=== PATIENT | female | born 1970 | race African-American/Black ===

== ENCOUNTER 2017-07-01 06:01 | Inpatient (IN) | payer OTHER ==
[~2017-07-01] VITALS: Ht 170.2 cm; Wt 119.7 kg
[2017-07-01] VITALS (8 sets, daily range): BP systolic 170–217; BP diastolic 78–101
--- NOTE | ~2017-07-01 | EKG ---
[address] [place] [address] ELECTROCARDIOGRAM REPORT Name: XANDER ZAVALA Room #: 170-7 ADM IN .R.#: [id number] Admission: 07/01/17 Attend Phys: Bryan Zhao MD Discharge: Date of : 74 Report #: [id number] THIS REPORT FOR: //name// [facility] ED Test Date: 2017-07-01 Test Time: 06:53:24 Pat Name: XANDER ZAVALA Department: Room: 170 Gender: F Manufacturing Tech: : 1970 Requested By: Chad Hoskins Order Number: [id number] MD: Maynor Sylvester Measurements Intervals [place] Rate: 91 P: 68 [place]: 229 QRS: -5 QRSD: 87 T: 120 QT: 404 QTc: 498 Interpretive Statements Sinus rhythm Prolonged [place] interval LVH with secondary repolarization abnormality Borderline prolonged QT interval No previous ECG available for comparison Electronically Signed On 07-01-2017 9:58:01 X [employer] by Maynor Sylvester [email or web address] <ELECTRONICALLY SIGNED> By: Maynor Sylvester MD, [facility] 07/01/17 [id number] Maynor Sylvester MD, FACC /EPI
[~2017-07-01 06:01] MED LIST: AMOXICILLIN 50500 M1 PO; HYDROCHLOROTH12.5 MG; IBUPROFEN 600600 M1 PO; NORCO 5-325 TA1 EACH PO
[2017-07-01] MEDS ORDERED: PRINIVIL20 MG PO (06:13)
[2017-07-01 06:47] LABS: ABSOLUTE NEUTROPHILS 11.1 thou/uL (1.4-8.2); BASOPHILS 0.6 % (0.0-2.0); EOSINOPHILS 0.1 % (0.0-3.0); HEMATOCRIT 37.7 % (37.0-47.0); HEMOGLOBIN 12.1 gm/dL (12.0-15.0); LYMPHOCYTES 11.6 % (24.0-44.0); MCH 26.7 pg (26.0-34.0); MCV 83.3 fL (80.0-100.0); MONOCYTES 2.9 % (1.0-8.0); PLATELET COUNT 272 thou/uL (150-400); POLYS 84.8 % (36.0-66.0); RBC 4.52 mil/uL (4.20-5.00); RDW 14.1 % (10.5-14.5); WBC 13.1 thou/uL (4.0-11.0)
[2017-07-01 07:03] LABS: MANUAL DIFF NO
[2017-07-01 07:05] LABS: APTT 26.2 Seconds (24.5-32.8); PROTIME 10.3 Seconds (9.3-11.4)
[2017-07-01 07:17] LABS: ANION GAP 14 mmol/L (7-16); BUN 11 mg/dL (7-18); CALCIUM 9.3 mg/dL (8.5-10.1); CHLORIDE 98 mmol/L (98-107); CO2 25 mmol/L (21-32); CREATININE 0.9 mg/dL (0.6-1.0); GLUCOSE 325 mg/dL (74-106); POTASSIUM 3.3 mmol/L (3.5-5.1); SODIUM 137 mmol/L (136-145)
[2017-07-01 07:27] LABS: ALBUMIN 3.6 g/dL (3.4-5.0); ALKALINE PHOSPHATASE 76 U/L (46-116); MAGNESIUM 1.4 mg/dL (1.8-2.4); SGOT 17 U/L (15-37); SGPT 17 U/L (30-65); TOTAL BILIRUBIN 0.3 mg/dL (<0.1-1.0); TOTAL PROTEIN 8.5 g/dL (6.4-8.2); TROPONIN-I < 0.04 ng/mL (<0.06)
[2017-07-01 08:19] LABS: URINE BILIRUBIN NEGATIVE (Negative); URINE BLOOD NEGATIVE (Negative); URINE COLOR YELLOW; URINE GLUCOSE-RANDOM* 3+ (Negative); URINE KETONES 2+ (Negative); URINE NITRITE NEGATIVE (Negative); URINE PROTEIN (DIPSTICK) NEGATIVE (Negative); URINE SPECIFIC GRAVITY 1.015 (1.003-1.035); URINE UROBILINOGEN 0.2 E.U./dl (0.2-1.0)
[2017-07-01 08:25] LABS: AMP/METHAMP Negative (Negative); BARBITURATES Negative (Negative); BENZODIAZEPINES Negative (Negative); COCAINE Negative (Negative); METHADONE Negative (Negative); OPIATES Negative (Negative); PCP Negative (Negative); THC Negative (Negative)
[2017-07-02 01:10] LABS: GLYCOHEMOGLOBIN (HGB A1C) 8.9 % (4.8-5.6)
[2017-07-02 05:51] VITALS: BP 179/85
[2017-07-02 06:22] LABS: CHOLESTEROL 235 mg/dL (<200); HDL CHOLESTEROL 61 mg/dL (>40); LDL CHOLESTEROL 159 mg/dL (<100); SERUM ASSESSMENT Clear; TC:HDL 3.9 Ratio (Not establshd); TRIGLYCERIDE 79 mg/dL (<150); VLDL 16 mg/dL (<40)
[2017-07-02 07:42] VITALS: BP 194/88
[2017-07-02 12:59] VITALS: BP 144/84
[2017-07-02 16:29] VITALS: BP 180/105
[2017-07-02 18:15] VITALS: BP 147/85
[2017-07-02 20:00] VITALS: BP 153/79
[2017-07-03] VITALS: BP 165/79
[2017-07-03 04:15] VITALS: BP 156/72
[2017-07-03 08:12] VITALS: BP 154/76
[2017-07-03] MEDS ORDERED: LIPITOR10 MG PO (08:26)
[2017-07-03] MEDS ORDERED: CLONIDINE0.1 PO (08:26)
[2017-07-03] MEDS ORDERED: ANTIVERT25 MG PO (08:27)
[2017-07-03] MEDS ORDERED: TRI-BUFFERED A325 M1 PO (08:27)
[2017-07-03] MEDS ORDERED: SCOPOLAMINE1 EACH TRANSDERM (08:44)
[2017-07-03 10:54] VITALS: BP 154/76
== END 2017-07-03 11:58 | disposition home or self-care (01) | DRG 149 ==
LOC: ER 06:01 → 3W 07:30 → EROBS 07:30 → 3W 10:10
PROVIDERS: Emergency Medicine; Psychiatry & Neurology Neurology
DX: H83.09 Labyrinthitis, unspecified ear (principal); Z68.41 Body mass index [BMI] 40.0-44.9, adult; E87.6 Hypokalemia; E83.42 Hypomagnesemia; I10 Essential (primary) hypertension; E66.9 Obesity, unspecified; E11.65 Type 2 diabetes mellitus with hyperglycemia; H81.20 Vestibular neuronitis, unspecified ear; Z86.73 Personal history of transient ischemic attack (TIA), and cerebral infarction without residual deficits; Z28.21 Immunization not carried out because of patient refusal
CPT/HCPCS: 10779